=== PATIENT | female | born 1945 | race Caucasian/White ===

== ENCOUNTER 2023-11-21 10:48 | Inpatient (IN) ==
[2023-11-21 11:19] LABS: ABS Basophils 0.1 10^3/uL (0.0-0.1); ABS Lymphocytes 1.7 10^3/uL (1.0-4.8); ABS Monocytes 0.5 10^3/uL (0.0-0.9); ABS Nucleated RBC 0.01 10^3/ul; Eosinophil % 0.9 %; Hematocrit 38.8 % (35-45); Hemoglobin 12.9 g/dL (11.5-14.3); Lymphocyte % 32.3 %; Mean Corpuscular Hemoglobin 28.1 pg (27-33); Mean Corpuscular Hgb Conc 33.4 g/dL (31-36); Mean Corpuscular Volume 84.2 fL (80-97); Nucleated Red Blood Cells % 0.1 %/100WBC (0.0-0.8); Platelet Count 202 10^3/uL (150-450); Red Blood Count 4.61 10^6/uL (3.63-4.92); Red Cell Distribution Width 14.7 % (12-17); White Blood Count 5.3 10^3/uL (3.8-11.8)
[2023-11-21 11:40] LABS: INR 1.01 (0.83-1.13)
[2023-11-21 11:46] LABS: Albumin/Globulin Ratio 1.8 (1-3); Creatinine, Serum 0.68 mg/dL (0.51-0.95); Globulin 2.2 g/dL (2-4); Potassium 4.1 mmol/L (3.5-5.0); Total Bilirubin 0.7 mg/dL (0.2-1.0); Total Protein 6.2 g/dL (6.4-8.9); eGFR CKD-EPI 89.6 (>60)
[2023-11-21 12:53] LABS: High Sensitivity Troponin 1 Hr 42 pg/mL (<15)
[2023-11-21 15:08] LABS: Ferritin 78.3 ng/mL (11-307)
[2023-11-21] MEDS: hydrALAZINE 20 mg/ml 1 ML Vial IV IV SLOW PU PRN (16:07)
[2023-11-21] MEDS: Enoxaparin 40 MG/0.4 ML SYR SUBCUT SCH (17:24)
[2023-11-22 06:58] LABS: ABS Basophils 0.1 10^3/uL (0.0-0.1); ABS Eosinophils 0.1 10^3/uL (0.0-0.5); ABS Lymphocytes 2.2 10^3/uL (1.0-4.8); ABS Monocytes 0.5 10^3/uL (0.0-0.9); ABS Neutrophils 3.3 10^3/uL (1.5-7.6); ABS Nucleated RBC 0.01 10^3/ul; Eosinophil % 1.7 %; Hematocrit 41.5 % (35-45); Hemoglobin 13.7 g/dL (11.5-14.3); Lymphocyte % 35.9 %; Mean Corpuscular Hemoglobin 27.9 pg (27-33); Mean Corpuscular Hgb Conc 32.9 g/dL (31-36); Mean Corpuscular Volume 84.7 fL (80-97); Mean Platelet Volume 8.1 fL (7.5-11.2); Nucleated Red Blood Cells % 0.2 %/100WBC (0.0-0.8); Platelet Count 198 10^3/uL (150-450); Red Blood Count 4.91 10^6/uL (3.63-4.92); Red Cell Distribution Width 14.7 % (12-17); White Blood Count 6.2 10^3/uL (3.8-11.8)
[2023-11-22 07:16] LABS: Calcium 9.4 mg/dL (8.6-10.3); Creatinine, Serum 0.67 mg/dL (0.51-0.95); Magnesium 2.2 mg/dL (1.9-2.7); Potassium 4.7 mmol/L (3.5-5.0)
[2023-11-22] MEDS ORDERED: Regadenoson 0.4 MG/5 ML SYRINGE ONE (08:08)
[2023-11-22] MEDS ORDERED: Aminophylline 25 MG/ML VIAL ONE (08:08)
[2023-11-22] MEDS ORDERED: Sulfur Hexaflouride MICROSPHR 25 MG VIAL ONE (10:08)
[2023-11-22] MEDS: CMCS: OMEGA-3 FATTY ACID 1000 mg(NF) PO SCH (10:10)
[2023-11-22] MEDS: Aspirin EC 81 mg TAB.EC (enteric coated) PO SCH (10:11)
[2023-11-22] MEDS: Vitamin THERAPEUTIC TAB PO SCH (10:12)
[2023-11-22] MEDS: Senna TAB 8.6 mg TAB PO PRN (20:11)
[2023-11-23] MEDS ORDERED: nitroGLYCERIN DRIP 25,000 MCG/250 ML BTL ONE (09:33)
[2023-11-23] MEDS ORDERED: Lidocaine 1% MPF 5 ML VIAL ONE (09:33)
[2023-11-23] MEDS ORDERED: Heparin 2 UNITS/ML 1000 mls 2,000 ML IV ONE (09:33)
[2023-11-23] MEDS ORDERED: Iohexol 350 (CONTRAST) 200 ML MDV IV ONE (09:33)
[2023-11-23] MEDS ORDERED: Heparin 1,000 UNIT/ML 10 ml (10,000 UNITS) CATHLAB/DIALYSIS ONE (09:34)
[2023-11-23] MEDS ORDERED: VERAPAMIL 2.5 MG/ML 2 ML VIAL ** 5 mg/2 ml ONE (09:49)
[2023-11-23] MEDS ORDERED: Midazolam 5 mg/5 ml VIAL 1 mg/ml 5 ml VIAL (5 mg) ONE (09:50)
[2023-11-23] MEDS ORDERED: fentaNYL 100 mcg/2 ml 50 MCG/ML VIAL ONE (09:50)
[2023-11-23] MEDS ORDERED: Phenylephrine 40 mcg/mL 10mL (400mcg) SYRINGE ONE (10:04)
[2023-11-23] MEDS ORDERED: Atropine 0.1 MG/ML 10 ml SYR (1 mg) ONE (10:04)
[2023-11-23] MEDS: NS 0.9% 1000 ml BAG 1,000 ML IV SCH (11:25)
[2023-11-23] MEDS: Heparin DRIP 25,000 UNITS BAG 25,000 UNITS/250 ML BAG IV SCH (11:29)
[2023-11-23] MEDS ORDERED: Heparin 5000 UNITS/ML 1 mL VIAL IV SCH (12:00)
[2023-11-23 12:16] LABS: ABS Basophils 0.1 10^3/uL (0.0-0.1); ABS Eosinophils 0.1 10^3/uL (0.0-0.5); ABS Lymphocytes 2.3 10^3/uL (1.0-4.8); ABS Monocytes 0.5 10^3/uL (0.0-0.9); ABS Nucleated RBC 0.02 10^3/ul; Eosinophil % 1.3 %; Hematocrit 41.2 % (35-45); Hemoglobin 13.8 g/dL (11.5-14.3); Lymphocyte % 32.7 %; Mean Corpuscular Hemoglobin 28.2 pg (27-33); Mean Corpuscular Hgb Conc 33.5 g/dL (31-36); Mean Corpuscular Volume 84.2 fL (80-97); Mean Platelet Volume 8.3 fL (7.5-11.2); Nucleated Red Blood Cells % 0.2 %/100WBC (0.0-0.8); Platelet Count 222 10^3/uL (150-450); Red Blood Count 4.89 10^6/uL (3.63-4.92); Red Cell Distribution Width 14.9 % (12-17); White Blood Count 6.9 10^3/uL (3.8-11.8)
[2023-11-23] MEDS: Heparin DRIP 25,000 UNITS BAG 25,000 UNITS/250 ML BAG IV ONE (12:32)
[2023-11-23 12:42] LABS: Creatinine, Serum 0.72 mg/dL (0.51-0.95); eGFR CKD-EPI 86.1 (>60)
[2023-11-23 18:22] VITALS: BP 167/67
== END 2023-11-23 18:30 | disposition short-term general hospital (02) | DRG 287 ==
LOC: ED 10:48 → EDHOLD 10:48 → MEDTELE 15:29 → ICU 11-23 11:00
PROVIDERS: ADMIT Hospitalist; ATTEND Hospitalist

== ENCOUNTER 2024-06-27 09:49 | Inpatient (IN) ==
[2024-06-27] MEDS ORDERED: Sulfur Hexaflouride MICROSPHR 25 MG VIAL IV PRN (10:47)
[2024-06-27 12:44] LABS: Hematocrit 39.6 % (35-45); Hemoglobin 13.1 g/dL (11.5-14.3); Mean Corpuscular Hemoglobin 27.7 pg (27-33); Mean Corpuscular Hgb Conc 33.1 g/dL (31-36); Mean Corpuscular Volume 83.7 fL (80-97); Mean Platelet Volume 6.5 fL (7.5-11.2); Platelet Count 187 10^3/uL (150-450); Red Blood Count 4.73 10^6/uL (3.63-4.92); Red Cell Distribution Width 15.2 % (12-17); White Blood Count 6.1 10^3/uL (3.8-11.8)
[2024-06-27] MEDS: Heparin DRIP 25,000 UNITS BAG 25,000 UNITS/250 ML BAG IV SCH (12:44)
[2024-06-27] MEDS: Heparin 5000 UNITS/ML 1 mL VIAL IV SCH (12:44)
[2024-06-27 12:51] LABS: INR 1.12 (0.85-1.14)
[2024-06-27 13:27] LABS: ABS Basophils 0.1 10^3/uL (0.0-0.1); ABS Eosinophils 0.1 10^3/uL (0.0-0.5); ABS Lymphocytes 1.7 10^3/uL (1.0-4.8); ABS Monocytes 0.7 10^3/uL (0.0-0.9); ABS Neutrophils 3.6 10^3/uL (1.5-7.6); Eosinophil % 2.1 %; Nucleated Red Blood Cells % 0.1 %/100WBC (0.0-0.8)
[2024-06-27 13:53] LABS: Albumin 3.2 g/dL (3.2-5.2); Albumin/Globulin Ratio 1.7 (1-3); Calcium 8.5 mg/dL (8.6-10.3); Creatinine, Serum 0.62 mg/dL (0.51-0.95); Globulin 1.9 g/dL (2-4); Total Bilirubin 0.5 mg/dL (0.2-1.0); Total Protein 5.1 g/dL (6.4-8.9); eGFR CKD-EPI 91.1 (>60)
[2024-06-27 14:54] LABS: High Sensitivity Troponin 1 Hr 201 pg/mL (<15)
[2024-06-27] MEDS ORDERED: Aspirin EC 81 mg TAB.EC (enteric coated) PO SCH (21:00)
[2024-06-28 08:36] LABS: ABS Eosinophils 0.2 10^3/uL (0.0-0.5); ABS Lymphocytes 1.4 10^3/uL (1.0-4.8); ABS Monocytes 0.6 10^3/uL (0.0-0.9); ABS Neutrophils 3.2 10^3/uL (1.5-7.6); Eosinophil % 3.2 %; Hematocrit 38.7 % (35-45); Lymphocyte % 26.2 %; Mean Corpuscular Hemoglobin 28.1 pg (27-33); Mean Corpuscular Hgb Conc 33.5 g/dL (31-36); Mean Corpuscular Volume 83.7 fL (80-97); Mean Platelet Volume 6.8 fL (7.5-11.2); Nucleated Red Blood Cells % 0.1 %/100WBC (0.0-0.8); Platelet Count 199 10^3/uL (150-450); Red Blood Count 4.62 10^6/uL (3.63-4.92); Red Cell Distribution Width 15.2 % (12-17); White Blood Count 5.5 10^3/uL (3.8-11.8)
[2024-06-28 09:02] LABS: Albumin/Globulin Ratio 1.8 (1-3); Calcium 8.5 mg/dL (8.6-10.3); Creatinine, Serum 0.62 mg/dL (0.51-0.95); Globulin 1.7 g/dL (2-4); Potassium 4.3 mmol/L (3.5-5.0); Total Bilirubin 0.5 mg/dL (0.2-1.0); Total Protein 4.7 g/dL (6.4-8.9); eGFR CKD-EPI 91.1 (>60)
[2024-06-30 09:39] VITALS: BP 124/62
== END 2024-06-30 11:55 | disposition home or self-care (01) | DRG 189 ==
LOC: ED 09:49 → EDHOLD 09:49 → MEDTELE 12:06
PROVIDERS: ADMIT Student in an Organized Health Care Education/Training Program; ATTEND Student in an Organized Health Care Education/Training Program